=== PATIENT | female | born 1960 | race Caucasian/White ===

== ENCOUNTER → 2016-10-21 | Outpatient (CLI) | payer OTHER, BC | LOC: FIMAGING 12:05 | PROVIDERS: ATTEND Physician Assistant Medical | DX: G35 Multiple sclerosis (principal); M12.88 Other specific arthropathies, not elsewhere classified, other specified site ==

== ENCOUNTER → 2017-07-28 | Outpatient (CLI) | payer BC, OTHER | LOC: FIMAGING 15:41 | PROVIDERS: ATTEND Physician Assistant Medical | DX: G35 Multiple sclerosis (principal); M21.371 Foot drop, right foot; R26.89 Other abnormalities of gait and mobility ==

== ENCOUNTER → 2018-06-24 | Outpatient (CLI) | payer BC, OTHER | LOC: EMCIMAGING 12:50 | PROVIDERS: ATTEND Physician Assistant Medical | DX: G35 Multiple sclerosis (principal) | CPT/HCPCS: 70551-PN ==